=== PATIENT | female | born 1945 | race Caucasian/White ===

== ENCOUNTER 2021-09-29 11:24 | Emergency (ER) | payer BC, MEDICAID ==
[~2021-09-29] VITALS: Ht 157.5 cm; Wt 64.4 kg
--- NOTE | 2021-09-29 13:10 | NUR ---
76/F C/O RIGHT EAR DISCOMFORT X2 DAYS, DENIES RECENT INJURY OR TRAUMA, DENIES DRAINAGE, DENIES TAKING MEDS FOR SYMTPOMS. PMH: ESRD (DIALYSIS , , MON), HTN NKA
[2021-09-29] MEDS: CARBAMIDE PEROXIDE 6.5% OT 15 ML BTL OT ONE (13:12)
--- NOTE | 2021-09-29 13:12 | NUR ---
EMT AT BEDSIDE FOR EAR IRRIGATION
[2021-09-29 14:10] VITALS: BP 156/99
== END 2021-09-29 14:10 | disposition home or self-care (01) ==
LOC: MED 11:24
DX: H61.23 Impacted cerumen, bilateral (principal); I10 Essential (primary) hypertension
CPT/HCPCS: 99282

== ENCOUNTER 2023-07-23 17:15 | Emergency (ER) | payer MEDICARE, MEDICAID ==
[~2023-07-23] VITALS: Ht 157.5 cm; Wt 70.8 kg
[2023-07-23 17:43] VITALS: BP 155/57; PULSE 66; RESP 18; TEMP 97.5; O2SAT 97
[2023-07-23] MEDS ORDERED: KETOROLAC 60 MG/2 ML VIAL IM ONE (18:20)
[2023-07-23 18:39] VITALS: BP 155/57; PULSE 66; RESP 18; TEMP 97.5; O2SAT 97
[2023-07-23] MEDS ORDERED: IBUP-2213 PO (18:40)
== END 2023-07-23 18:40 | disposition home or self-care (01) ==
LOC: MED 17:15
DX: S70.02XA Contusion of left hip, initial encounter (principal); H61.21 Impacted cerumen, right ear; I10 Essential (primary) hypertension; N28.9 Disorder of kidney and ureter, unspecified; Z99.2 Dependence on renal dialysis; W18.30XA Fall on same level, unspecified, initial encounter; Y93.89 Activity, other specified; Y92.89 Other specified places as the place of occurrence of the external cause; Y99.8 Other external cause status
CPT/HCPCS: 99282